=== PATIENT | male | born 1975 | race Caucasian/White ===

== ENCOUNTER 2024-01-12 12:18 | Outpatient (CLI) | payer BC, SELFPAY ==
--- NOTE | ~2024-01-12 | XR_ITS ---
3 VIEWS LUMBAR SPINE Ordering provider: Bernarda Cristina History: . Low back pain no injury . Comparison: None. FINDINGS: VERTEBRAL BODIES:Postoperative changes with fixation at the levels of L4, L5 and S1. No visible frac ture or subluxation. DISK SPACES: Narrowing of the disc L5-S1. SOFT TISSUES: Normal. IMPRESSION: No acute osseous abnormality lumbar spine. Postoperative changes in the lower lumbar area. Reviewed, dictated and finalized at location A.
--- NOTE | ~2024-01-12 | XR_ITS ---
XR hip RT 2V w AP pelvis 01/12/2024 12:49 Indication: Right hip pain Procedure: AP pelvis and 2 views right hip Comparison: No prior studies for comparison. Findings: Mild osteoarthritis of the hips. Status post fusion at the lumbosacral junction. No fractur e or traumatic malalignment. Sacral foramen are symmetric. Pelvic rings are intact. Impression: 1: Mild osteoarthritis of the hips. Reviewed, dictated and finalized at location B. Impression: 1: Mild osteoarthritis of the hips.
== END 2024-01-12 12:19 ==
PROVIDERS: PCP Family Medicine
DX: M54.50 Low back pain, unspecified (principal); M16.11 Unilateral primary osteoarthritis, right hip
CPT/HCPCS: 72100; 73502